=== PATIENT | female | born 1960 | race Caucasian/White ===

== ENCOUNTER 2016-12-21 08:53 | Inpatient (IN) ==
[2016-12-21] MEDS ORDERED: Lidocaine 1% 20 ML MDV ID ONE (09:29)
[2016-12-21] MEDS ORDERED: Albuterol 2.5 MG/3 ML NEBULIZER IH ONE (09:29)
[2016-12-21] MEDS ORDERED: Clindamycin 900 MG/50 ML 900 MG/50 ML IV.SOLN IVPB ONE (09:30)
[2016-12-21] MEDS ORDERED: Ringers Solution, Lactated 1,000 ML IVC SCH (09:30)
--- NOTE | 2016-12-21 09:31 | Anesthesia Evaluation PreOp ---
Date of Encounter: 12/21/16 Time of Encounter: 09:29 - Past History Planned Operation: jenna fundoplication Cardiac History: HTN, Hyperlipidemia, Other (stress 08/30: neg ischemia, nsr at rest. 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: Other (anxiety) Other Medical History: Renal (stones), GERD Anesthesia History: No Prior Anesthetic Complications, Past Anesthesia ( cholecyst, appy, part hysterect, btl, renal stent) Alcohol Use: none Drug use: none Medications and Allergies HYDROcodone/Acet 7.5/325 mg [[place] 7.5-325 mg] 1 tab PO Q6H PRN 08/30/16 [ History] Lisinopril [Zestril] 10 mg PO DAILY 08/30/16 [History] Acetaminophen/Diphenhydramine [Percogesic 325-12.5 mg Tablet] 1 each PO HS PRN 11/09/16 [History] Allergies gabapentin [From Neurontin] Allergy (Verified 08/30/16 10:49) Unresponsive All antibiotics but bactrim Allergy (Uncoded 06/10/16 12:00) Anaphylaxis - Meds/Allergy Pre-op Review Medications Reviewed: Yes Allergies Reviewed: Yes Beta Blockers on Current Med List: No Anesthesia Results - Labs Laboratory Tests 11/02/16 12/19/16 10:05 09:45 Hgb 13.4 Hct 42.6 Plt Count 444 H Sodium 138 Potassium 4.4 Creatinine 0.70 - Imaging EKG: report reviewed (sr) Anesthesia Exam O2 Sat Height 1.68 m Height 1.68 m Weight 70.76 kg Weight 70.76 kg O2 Sat by Pulse Oximetry 99 Vital Signs Temp Pulse Resp BP Pulse Ox 97.8 F 71 18 112/75 99 12/21/16 09:12 12/21/16 09:12 12/21/16 09:12 12/21/16 09:12 12/21/16 09:12 Height: 1.68 Weight: 70 NPO (# of Hours): >8 - HEENT Pupil (Motor): Pupils equal, EOMI Mallampati: II Teeth: Poor dentition Oral Opening: Greater than 3 - VARNISH REMOVER LOC: Oriented VARNISH REMOVER Motor: Normal RUE, Normal LUE, Normal RLE, Normal LLE, Normal Face VARNISH REMOVER Sensory: Normal: RUE, LUE, RLE, LLE, Face - Cardiac Rhythm: Regular Murmur: None - Pulmonary Breath Sounds: bilateral Clear Respiratory Effort: Symmetrical Anesthesia Assess/Plan ASA Score: 2 Modified Eldon Scale for Level of Consciousness: Cooperative, oriented, and tranquil Anesthetic Plan: General Monitoring Plan: Standard Monitors Recovery Plan: PACU
--- NOTE | 2016-12-21 10:17 | History & Physical Report ---
Date of Encounter: 12/21/16 Time of Encounter: 10:15 24 Hour HP Update - Instructions Instructions: If the History and Physical is less than 30 days old and was completed prior to A.M. admission and or procedure and has NOT been updated on calendar day of procedure please complete this update prior to performing procedure. - Update Patient reports changes in Medical Condition: No Changes in assessment/condition: No Changes in Medication: No Preop tests/diagnostics Reviewed: Yes Surgery Remains Indicated: Yes Consent for Planned Operative Procedure(s) Verified: Yes - Pre-Operative Checklist Preoperative Checklist Indicated: Yes Prophylactic Antibiotic Ordered: Yes Home Medications Include Beta Alejandro: No Is VTE Prophylaxis Indicated?: Yes
[2016-12-21] MEDS ORDERED: CefOXitin 1,000 MG VIAL ONE (10:53)
[2016-12-21] MEDS ORDERED: *HR* Midazolam HCl 2 MG/2 ML VIAL ONE (11:25)
[2016-12-21] MEDS ORDERED: Dexamethasone 4 MG/ML VIAL ONE (11:25)
[2016-12-21] MEDS ORDERED: *HR* Succinylcholine 200 MG/10 ML VIAL IVP ONE (11:25)
[2016-12-21] MEDS ORDERED: Ondansetron 4 MG/2 ML VIAL ONE (11:25)
[2016-12-21] MEDS ORDERED: *HR* FentaNYL (PF) 100 MCG/2 ML VIAL ONE (11:25)
[2016-12-21] MEDS ORDERED: *HR* Phenylephrine 10 MG/ML VIAL ONE (11:42)
[2016-12-21] MEDS ORDERED: *HR* Rocuronium Bromide 50 MG/5 ML VIAL ONE (12:11)
[2016-12-21] MEDS ORDERED: *HR* HYDROmorphone 2 MG/ML SYRINGE ONE (12:11)
[2016-12-21] MEDS ORDERED: *HR* Morphine 2 MG/ML SYRINGE IVP PRN (12:18)
[2016-12-21] MEDS ORDERED: Ondansetron 4 MG/2 ML VIAL IVP ONE (12:18)
[2016-12-21] MEDS ORDERED: Ketorolac 30 MG/ML VIAL IVP ONE (12:18)
[2016-12-21] MEDS ORDERED: Acetaminophen IV 1,000 MG/100 ML INFUS..BTL IVPB ONE (12:19)
--- NOTE | 2016-12-21 13:00 | Operative Note ---
Date of procedure: 12/21/16 Pre-op diagnosis: Paraesophageal hernia Post-op diagnosis: same Procedure: #1 open repair of paraesophageal hiatal hernia. #2 open Kristy fundoplication Anesthesia: MASON Surgeon: Antonio Gonzáles Estimated blood loss (cc): 100 Specimen: Hernia sac Condition: stable Disposition: PACU Procedure in Detail: After informed consent patient was taken to the major operating room placed in supine position and given adequate general anesthetic. Kurtz catheter placed. The abdomen was prepped and draped in sterile fashion utilizing ChloraPrep standard draping techniques. Tremendous taken and patient is identified. I made a vertical midline incision between the xiphoid and umbilicus. I entered the abdominal cavity. There was a small amount of antrum still in the abdominal cavity with remainder of the stomach in the chest. I mobilized the triangular ligament folding the lateral segment of left lobe of the liver medially. I reduced the stomach into the abdomen and then divided the peritoneal attachments anterior to the hiatus. The esophagus was initially identified a nasogastric tube. Once the stomach was reduced to remove the nasogastric tube and placed a dilator. Using the dilator as a guide I was able to divide the soft tissues between the stomach and the chest cavity. By doing this I circumferentially dissected the zenon of the diaphragm on both sides. The stomach was fully mobilized in the abdomen and a [place] drain placed around the distal esophagus. There is a large amount of hernia sac attached to the stomach and this was resected. Once this was done I was able to identify the short gastrics on the cardia. These were divided. The esophagus and stomach was retracted laterally and I could clearly see both sides of the hiatal hernia opening. The hiatus was closed with 4 stitches of 2-0 Ethibond with pledgets. This was done around a 56-Bel[place]ian bougie inside the esophagus. This gave an excellent technical result. The cardia was then wrapped behind the gastroesophageal junction and I performed a Kristy fundoplication around the 56-[place]ian bougie using 3 stitches of 2-0 Ethibond with pledgets. I then placed 2 shoulder stitches from the Kristy up to the diaphragm to secure the Kristy. This gave an excellent technical result. Total bleeding was perhaps 100 mL the gastric volvulus was now completely reduced and the paraesophageal hernia completely repaired. There is no evidence of bleeding. I irrigated with copious amounts of antibiotic containing solution. Midline was closed with looped 0 PDS and the skin with 2-0 Vicryl and skin devi. She tolerated the procedure well and transferred to recovery in stable condition
[2016-12-21] MEDS ORDERED: *HR* HYDROmorphone (PF) 1 MG/ML SYRINGE ONE ×3 (13:11→14:13)
[2016-12-21] MEDS: *HR* HYDROmorphone (PF) 1 MG/ML SYRINGE IVP PRN ×9 (13:20→23:09)
[2016-12-21] MEDS ORDERED: *HR* HYDROmorphone (PF) 1 MG/ML SYRINGE IVP ONE (14:15)
--- NOTE | 2016-12-21 14:35 | Anesthesia Evaluation Post Op ---
Date of Encounter: 12/21/16 Time of Encounter: 14:30 - Vital Signs Vital Signs: Last Vital Signs Temp 98.1 F 12/21/16 14:02 Pulse 75 12/21/16 14:02 Resp 16 12/21/16 14:02 BP 159/86 12/21/16 14:02 Pulse Ox 97 12/21/16 14:02 - Lungs Lungs: Clear Ascult./Percussion - Airway Airway: Non-obstructed - Cardiovascular Regular Rate - Mental Status Mental Status: Alert & Oriented, Answers Appropriately, Asleep with brisk response to light stimulation - Pain Pain Scale: 8 Pain Scale used: Numeric (1 - 10) - Nausea Vomiting Nausea Vomiting: Not Present - Hydration Hydration: Ice chips - Discharge PostOp Status: Transfer Patient to floor Attestation: Patient meets criteria for floor transfer.
[2016-12-21] MEDS ORDERED: *HR* Metoprolol 5 MG/5 ML VIAL IVP PRN (15:10)
[2016-12-21] MEDS ORDERED: Ondansetron 4 MG/2 ML VIAL IVP PRN (15:10)
[2016-12-21] MEDS: Clindamycin 900 MG/50 ML 900 MG/50 ML IV.SOLN IVPB SCH ×2 (15:18→23:09)
[2016-12-21] MEDS: 0.9 % Sodium Chloride 1,000 ML IVC SCH (17:07)
[2016-12-22] MEDS: *HR* HYDROmorphone (PF) 1 MG/ML SYRINGE IVP PRN ×11 (02:47→22:51)
[2016-12-22 04:50] LABS: Basophils % 0.1 %; Hematocrit 35.5 % (35.3-44.9); Hemoglobin 11.9 g/dL (11.5-15.4); Immature Granulocytes % 0.4 % (0-4); Lymphocytes % 18.1 %; Mean Corpuscular HGB Conc 33.5 g/dL (31.6-35.5); Mean Corpuscular Hemoglobin 30.7 pg (28.0-33.3); Mean Corpuscular Volume 91.7 fL (83.0-100.0); Mean Platelet Volume 9.2 fL (9.4-12.4); Monocytes # 0.8 K/mcL (0.0-1.3); Monocytes % 7.5 %; Neutrophils # 8.3 K/mcL (1.6-8.9); Platelet Count 352 K/mcL (140-400); Red Blood Count 3.87 M/mcL (3.82-4.97); Red Cell Distribution Width 13.4 % (11.5-14.5); Segmented Neutrophils % 73.9 %
[2016-12-22 05:06] LABS: BUN/Creatinine Ratio 16 (6-26); Blood Urea Nitrogen 10 mg/dL (7-20); Calcium 8.1 mg/dL (8.6-10.8); Carbon Dioxide 21 mEq/L (19-29); Chloride 107 mEq/L (98-109); Glucose 98 mg/dL (70-99); Osmolality,Calculated 285 (280-300); Potassium 4.2 mEq/L (3.5-4.5); Sodium 138 mEq/L (136-145); eGFR For African Americans > 60 (> 60); eGFR For Non-African Americans > 60 (> 60)
--- NOTE | 2016-12-22 07:29 | General Surgery Progress Note ---
Date of Encounter: 12/22/16 Time of Encounter: 07:10 - Assessment and Plan (1) Gastric volvulus Current Visit: No Status: Acute The patient is postoperative day 1 from reduction of gastric volvulus and repair of paraesophageal hiatal hernia as well as Kristy fundoplication. She is doing quite well after surgery with no evidence of tachycardia or febrile episode. She has no chest pain. We will start her on clear liquids today and remove the Kurtz catheter. Subjective Narrative: The patient is postoperative day 1 from reduction of gastric volvulus, repair of paraesophageal hiatal hernia and Kristy fundoplication. She is doing quite well after surgery. She has active bowel sounds. Her lungs are clear. She denies shakes chills or fever. She denies any chest pain. There is no evidence of tachycardia. I think it is reasonable to start her on clear liquids today. Her pain control is good. She is already been out of bed to the chair. Objective Vital Signs - Last 8 Hours Temp Pulse Resp BP Pulse Ox 12/22/16 06:45 98.4 F 78 17 132/79 95 12/22/16 03:46 98.9 F 82 14 132/82 92 L 12/22/16 00:12 99.1 F 85 16 117/70 93 L Intake and Output 12/21/16 12/21/16 12/22/16 15:59 23:59 07:59 Intake Total 50 / 50 493 / 493 0 / 0 Output Total 100 / 100 325 / 325 1150 / 1150 Balance -50 / -50 168 / 168 -1150 / -1150 Intake: IV Fluids 50 / 50 493 / 493 0.9 % Sodium Chloride 1, 443 / 443 000 ML @ 75 mls/hr IVC . [id number] [facility] Rx#: [id number] Cleocin 900 MG/50 ML 900 50 / 50 50 / 50 mg In 50 ml @ 50 mls/hr IVPB Q8HR [facility] Rx#: [id number] Oral 0 / 0 0 / 0 Output: Urine 325 / 325 750 / 750 Estimated Blood Loss 100 / 100 Catheter 400 / 400 Other: Meal NPO Weight 70.76 kg 73.2 kg Blood Glucose* 91 Patient Weight 12/22/16 23:59 Weight 73.2 kg - General physical appearance well developed, well nourished - Respiratory normal expansion, normal respiratory effort, clear to auscultation - Cardiovascular Cardiovascular exam: Present: RRR, no murmurs/rubs/gallops - Abdomen Abdomen: Present: bowel sounds present - Incision Incision: Present: clean and dry - Psychiatric oriented to time, oriented to person, oriented to place, speech is normal, memory intact - Labs 12/22/16 04:02 12/22/16 04:02 Diabetes panel 12/22/16 Range/Units 04:02 Sodium 138 (136-145) mEq/L Potassium 4.2 (3.5-4.5) mEq/L Chloride 107 (98-109) mEq/L Carbon Dioxide 21 (19-29) mEq/L BUN 10 (7-20) mg/dL Creatinine 0.64 (0.57-1.11) mg/dL Glucose 98 (70-99) mg/dL Calcium 8.1 L (8.6-10.8) mg/dL Calcium panel 12/22/16 Range/Units 04:02 Calcium 8.1 L (8.6-10.8) mg/dL Pituitary panel 12/22/16 Range/Units 04:02 Sodium 138 (136-145) mEq/L Potassium 4.2 (3.5-4.5) mEq/L Chloride 107 (98-109) mEq/L Carbon Dioxide 21 (19-29) mEq/L BUN 10 (7-20) mg/dL Creatinine 0.64 (0.57-1.11) mg/dL Glucose 98 (70-99) mg/dL Calcium 8.1 L (8.6-10.8) mg/dL Adrenal panel 12/22/16 Range/Units 04:02 Sodium 138 (136-145) mEq/L Potassium 4.2 (3.5-4.5) mEq/L Chloride 107 (98-109) mEq/L Carbon Dioxide 21 (19-29) mEq/L BUN 10 (7-20) mg/dL Creatinine 0.64 (0.57-1.11) mg/dL Glucose 98 (70-99) mg/dL Calcium 8.1 L (8.6-10.8) mg/dL - VTE Documentation of Mechanical Device: Intermittent pneumatic compression device Consult Discharge Plan - Plan Referrals: Antonio Gonzáles MD [Partnered Physician] - 01/23/17 8:55 am Lagunas,Sherly A, PATIENT CASE MANAGER [Primary Care Provider] -
[2016-12-22] MEDS: Pantoprazole 40 MG VIAL IVP SCH (09:38)
[2016-12-22] MEDS: 0.9 % Sodium Chloride 1,000 ML IVC SCH (20:38)
[2016-12-23] MEDS: *HR* HYDROmorphone (PF) 1 MG/ML SYRINGE IVP PRN ×8 (00:39→21:21)
[2016-12-23] MEDS: 0.9 % Sodium Chloride 1,000 ML IVC SCH ×2 (07:07→10:35)
[2016-12-23] MEDS: Pantoprazole 40 MG VIAL IVP SCH (07:11)
[2016-12-23] MEDS ORDERED: *HR* HYDROcodone/Acet 7.5/325 mg TABLET PO PRN (10:38)
--- NOTE | 2016-12-23 17:52 | General Surgery Progress Note ---
Date of Encounter: 12/23/16 Time of Encounter: 10:10 - Assessment and Plan (1) Gastric volvulus Current Visit: No Status: Acute Post op day #2 status post reduction of gastric volvulus and repair of paraesophageal hiatal hernia as well as Kristy fundoplication. The patient's pain medications have been altered to try to achieve better control of her postoperative pain. Added Ofirmev and Toradol. Continue GI prophylaxis. Continue nausea control PRN. Awaiting return of bowel function. Continue clear liquids at this time as tolerated. Subjective Patient reports: still having pain, voiding w/o difficulty, no flatus, no bowel movement Narrative: The patient is able to tolerate a clear liquid diet at this time without any nausea or vomiting. She has not had a bowel movement or passed gas yet. She states she continues to be in pain and wishes to just be able to go home. She is tearful and somewhat anxious. She reports feeling as if she needs to cough at times, but is unable to due to her abdominal pain. Objective Vital Signs - Last 8 Hours Temp Pulse Resp BP Pulse Ox 12/23/16 16:07 98.4 F 85 18 132/77 92 L 12/23/16 12:21 98.4 F 85 18 137/80 93 L Intake and Output 12/23/16 12/23/16 12/23/16 07:59 15:59 23:59 Intake Total 968 / 968 1342 / 1342 0 / 0 Balance 968 / 968 1342 / 1342 0 / 0 Intake: IV Fluids 618 / 618 382 / 382 0.9 % Sodium Chloride 1, 618 / 618 382 / 382 000 ML @ 75 mls/hr IVC . [id number] [facility] Rx#: [id number] Oral 350 / 350 960 / 960 0 / 0 Other: Meal Lunch # Voids 1 1 1 - General physical appearance well developed, well nourished, no distress, other (anxious) - Eyes normal ocular movement - ENT normal mucosa, atraumatic, normocephalic - Neck Neck exam: trachea midline - Respiratory normal respiratory effort, clear to auscultation - Cardiovascular Cardiovascular exam: Present: RRR - Abdomen Abdomen: Present: bowel sounds present, soft, tender - Incision Incision: Present: clean and dry, intact - Integumentary no rash - Neurologic CN 2-12 grossly intact - Musculoskeletal normal posture - Psychiatric oriented to time, oriented to person, oriented to place, speech is normal, memory intact - Labs 12/22/16 04:02 12/22/16 04:02 - VTE Documentation of Mechanical Device: Intermittent pneumatic compression device Consult Discharge Plan - Plan Referrals: Antonio Gonzáles MD [Partnered Physician] - 01/23/17 8:55 am Sherly Lagunas CNP [Primary Care Provider] - - Attending Attestation I examined this patient and my medical decision-making was reviewed with the ASPHALT DISTRIBUTOR TENDER/PA/Advanced Practice Nurse/Resident Physician. I agree with the documented findings, disposition and treatment plan as described except to the extent set forth below.
[2016-12-23] MEDS: Ketorolac 15 MG/ML VIAL IVP SCH (17:53)
[2016-12-23] MEDS ORDERED: Acetaminophen IV 1,000 MG/100 ML INFUS..BTL IVPB SCH (18:00)
[2016-12-24] MEDS: Ketorolac 15 MG/ML VIAL IVP SCH ×2 (00:08→05:21)
[2016-12-24] MEDS: 0.9 % Sodium Chloride 1,000 ML IVC SCH (00:09)
[2016-12-24] MEDS: Acetaminophen IV 1,000 MG/100 ML INFUS..BTL IVPB SCH ×2 (00:09→05:21)
[2016-12-24] MEDS: *HR* HYDROmorphone (PF) 1 MG/ML SYRINGE IVP PRN ×3 (03:46→11:11)
[2016-12-24 04:58] LABS: BUN/Creatinine Ratio 7 (6-26); Carbon Dioxide 22 mEq/L (19-29); Chloride 110 mEq/L (98-109); Glucose 92 mg/dL (70-99); Osmolality,Calculated 287 (280-300); Potassium 3.6 mEq/L (3.5-4.5); Sodium 140 mEq/L (136-145); eGFR For African Americans > 60 (> 60); eGFR For Non-African Americans > 60 (> 60)
[2016-12-24 05:25] LABS: Blood Urea Nitrogen 4 mg/dL (7-20)
[2016-12-24] MEDS: Pantoprazole 40 MG VIAL IVP SCH (08:13)
[2016-12-24 12:35] VITALS: BP 155/89
--- NOTE | 2016-12-24 13:00 | Discharge Summary ---
Date of Encounter: 12/24/16 Time of Encounter: 09:00 - Discharge Diagnosis (1) Gastric volvulus Priority: Primary Status: Resolved - Discharge Medications Prescriptions: Acetaminophen [Tylenol] 500 mg PO Q6HR #30 tablet OxyCODONE Immed Rel [Roxicodone 5 MG] 5 mg PO Q6HR PRN #30 tablet PRN Reason: Pain Docusate [Colace] 100 mg PO DAILY #20 capsule Ondansetron HCl [Zofran] 4 mg PO Q6H PRN #30 tablet PRN Reason: Nausea Home Medications: HYDROcodone/Acet 7.5/325 mg [[place] 7.5-325 mg] 1 tab PO Q6H PRN 08/30/16 [ History] Lisinopril [Zestril] 10 mg PO DAILY 08/30/16 [History] Buspirone HCl [Buspar] 10 mg PO BID 12/21/16 [History] Acetaminophen [Tylenol] 500 mg PO Q6HR #30 tablet 12/24/16 [Rx] Docusate [Colace] 100 mg PO DAILY #20 capsule 12/24/16 [Rx] Ondansetron HCl [Zofran] 4 mg PO Q6H PRN #30 tablet 12/24/16 [Rx] OxyCODONE Immed Rel [Roxicodone 5 MG] 5 mg PO Q6HR PRN #30 tablet 12/24/16 [Rx] Allergies/Adverse Reactions: Allergies gabapentin [From Neurontin] Allergy (Verified 12/21/16 09:45) Unresponsive Penicillins [PCN] Adverse Reaction (Verified 12/21/16 09:45) Rash All antibiotics but bactrim Allergy (Uncoded 12/21/16 09:45) See Comments patient states she has a sensitivity to antibiotics does not tolerate them well General Surgery Exam Initial Vital Signs Temp Pulse Resp BP Pulse Ox 97.8 F 71 18 112/75 99 12/21/16 09:12 12/21/16 09:12 12/21/16 09:12 12/21/16 09:12 12/21/16 09:12 - General physical appearance well developed, well nourished, no distress - Eyes normal ocular movement - ENT normal mucosa, atraumatic, normocephalic - Neck trachea midline - Respiratory normal respiratory effort, clear to auscultation - Cardiovascular Cardiovascular exam: Present: RRR - Abdomen Abdomen general surgery: Present: bowel sounds present, soft, tender (expected postoperative tenderness) - Incision Incision: Present: clean and dry, intact - Psychiatric Psychiatric general surgery: Present: A&Ox3 Date of admission: 12/21/16 14:53 Primary care physician: Sherly Lagunas, Anticipated date of discharge: 12/24/16 - Patient Status Disposition: Home, Self-Care Condition: Good Functional capacity at discharge: independent ambulation Overall status at discharge: patient is progressing back to baseline - Discharge Instructions Follow Up With: Antonio Gonzáles MD [Partnered Physician] - 01/23/17 8:55 am Sherly Lagunas CNP [Primary Care Provider] - Additional Instructions: #1 may shower starting today. #2 wash incisions with soap and water and pat dry daily #3 no lifting, pushing, pulling more than 10 pounds for the next 4 weeks #4 no driving until off narcotics for 24 hours and able to safely react in the car #5 may climb stairs #6 liquids and soft diet for at least 2 weeks - Diet and Activity Activity: increase activity as tolerated Diet: other (See additional instructions) - Hospital Course Hospital course: Ms. Redmond is a 56 year old female ho presented for repair of her paraesophagel hernia. She had #1 open repair of paraesophageal hiatal hernia. #2 open Kristy fundoplication performed by Dr. Gonzáles on 12/21/16. She tolerated the procedure well and was admitted to the hospital to monitor for pain control and return of bowel function. She had some postoperative pain on POD #1 and #2, but pain was well controlled on POD #3. She was able to tolerate clear liquids and had return of bowel function. She reports a willingness to go home. She was able to ambulate and void without any difficulty. She will be discharged home today. All questions were answered and the patient was agreeable to the plan of care. - Time Spent with Patient Total time spent providing and/or coordinating discharge services: Less than 30 minutes Labs on day of discharge: Labs from last 24 hours 12/24/16 04:23 Sodium 140 Potassium 3.6 Chloride 110 H Carbon Dioxide 22 BUN 4 L Creatinine 0.60 Est GFR ( Amer) > 60 Est GFR (Non-Af Amer) > 60 BUN/Creatinine Ratio 7 Glucose 92 Calculated Osmolality 287 Calcium 8.0 L - Attending Attestation I examined this patient and my medical decision-making was reviewed with the FILM OR TAPE LIBRARIAN/PA/Advanced Practice Nurse/Resident Physician. I agree with the documented findings, disposition and treatment plan as described except to the extent set forth below.
== END 2016-12-24 13:55 | disposition home or self-care (01) | DRG 220 ==
LOC: SAMDAY 08:53 → 3ANU 14:53
PROVIDERS: ADMIT Surgery; ATTEND Surgery